=== PATIENT | male | born 1990 | race Hispanic/Latino ===

== ENCOUNTER 2018-12-21 07:30 | Outpatient (CLI) | payer OTHER ==
[2018-12-21] MEDS ORDERED: Gadobenate Dimeglumine 529 MG/1 ML (20ML VIAL) ONE (09:00)
--- NOTE | 2018-12-21 12:21 | MRI ---
MRI BRAIN WITH AND WITHOUT IV CONTRAST: HISTORY: Migraine with aura, not intractable. FINDINGS: No restricted diffusion is seen. No evidence of infarct, hemorrhage, mass, midline shift, or abnorma l extraaxial fluid collections is seen. No abnormal post contrast enhancement is noted. No signific ant abnormalities are seen on the highly sensitive FLAIR images. No blood products are seen on the g radient echo sequences. There is mucosal disease in the paranasal sinuses. IMPRESSION: 1. Normal MRI of the brain. 2. Paranasal sinus disease. POS: OFF
== END 2018-12-21 07:31 | disposition home or self-care (01) ==
LOC: SCSMRI 07:30
PROVIDERS: ATTEND Psychiatry & Neurology Neurology
DX: G43.109 Migraine with aura, not intractable, without status migrainosus (principal); J32.9 Chronic sinusitis, unspecified
CPT/HCPCS: 70553; A9577